=== PATIENT | male | born 1960 | race Caucasian/White ===

== ENCOUNTER 2020-01-02 19:32 | Observation (INO) | payer SELFPAY ==
[2020-01-02 20:09] LABS: ABS Eosinophils 0.1 10^3/ul (0-0.6); ABS Lymphocytes 1.4 10^3/ul (1.0-4.8); ABS Monocytes 0.5 10^3/ul (0-0.8); ABS Neutrophils 4.1 10^3/ul (1.5-7.7); Eosinophil % 1.6 %; Hematocrit 43 % (42-52); Hemoglobin 14.6 g/dL (14.0-18.0); Lymphocyte % 22.9 %; Mean Corpuscular HGB Conc 34 g/dL (31-36); Mean Corpuscular Hemoglobin 31 pg (27-31); Mean Corpuscular Volume 91 fL (80-94); Mean Platelet Volume 7.9 fL (7.4-10.4); Platelet Count 193 10^3/uL (150-450); Red Cell Distribution Width 14 % (10-15); White Blood Count 6.2 10^3/uL (3.5-10.8)
[2020-01-02 20:14] LABS: INR 1.03 (0.82-1.09)
[2020-01-02 20:25] LABS: Albumin 4.3 g/dL (3.2-5.2); Albumin/Globulin Ratio 1.9 (1-3); BUN/Creatinine Ratio 17.4 (8-20); Calcium 9.1 mg/dL (8.6-10.3); EGFR African American 110.9 (>60); EGFR Non-African American 91.7 (>60); Globulin 2.3 g/dL (2-4); Total Bilirubin 0.6 mg/dL (0.2-1.0); Total Protein 6.6 g/dL (6.4-8.9)
--- NOTE | 2020-01-02 20:25 | ED ---
HPI Chest Pain - HPI Summary HPI Summary: Patient is a 59 y/o M presenting to [facility] via EMS with complaints of chest pressure with pain that radiates down his left arm. He states that CP onset around 1630 01/02/20 while his friend was giving him a ride from work. He states that he went home, ate a chicken sandwich and lied down. However, Sx did not resolve. EMS was called. Baby ASA and nitro were administered. He reports relief in chest pain with nitro, but he still had arm pain. Left arm pain is since resolved. He also notes feeling SOB and nauseous but denies vomiting and diaphoresis. Patient notes having a similar episode around 12 years ago. He states that he had two cardiac catheterizations but no abnormal findings, no stents were placed. He claims his last cardiac stress test was around this time as well. Patient reports that he has not seen his GP in several years. No Hx of blood clots, no recent travel noted. He states that he experiences pain and swelling of his BLE. Patient denies tobacco and substance usage. Home medications and allergies are reviewed. Patient is on metaxalone for sciatic nerve pain and he takes ibuprofen. Home Medications Medication Instructions Recorded Confirmed Type NK [No Home Medications Reported] 01/02/20 01/02/20 History - History of Current Complaint Time Seen by Provider: 01/02/20 19:44 Hx Obtained From: Patient Onset/Duration: Started Hours Ago Pain Intensity: 4 Pain Scale Used: 0-10 Numeric Chest Pain Radiates: Yes Chest Pain Radiates To:: Arm Character: Pressure/Squeezing Alleviating Factor(s): NTG 123 Associated Signs and Symptoms: Positive: Chest Pain, Shortness of Breath, Swelling - BLE, Nausea, Calf Pain/Swelling - BLE, Edema - BLE. Negative: Diaphoresis, Vomiting - Allergy/Home Medications Allergies/Adverse Reactions: Allergies Allergy/AdvReac Type Severity Reaction Status Date / Time No Known Allergies Allergy Verified 01/02/20 20:32 Home Medications: Home Medications NK [No Home Medications Reported] 01/02/20 [History Confirmed 01/02/20] PMH/Surg Hx/FS Hx/Imm Hx Cardiovascular History: Denies: Hx Embolism Sensory History: Denies: Hx Legally Blind, Hx Deafness Opthamlomology History: Denies: Hx Legally Blind EENT History: Denies: Hx Deafness Neurological History: Reports: Other Neuro Impairments/Disorders - sciatica - Immunization History Immunizations Up to Date: Yes Infectious Disease History: No Infectious Disease History: Denies: Traveled Outside the [place] in Last 30 Days - Family History Known Family History: Positive: Cardiac Disease - pericarditis - Social History Alcohol Use: Occasionally Substance Use Type: Reports: None Smoking Status (MU): Never Smoked Tobacco Review of Systems Negative: Skin Diaphoresis Positive: Chest Pain Positive: Shortness Of Breath Positive: Nausea. Negative: Vomiting Positive: Myalgia - BLE, Edema - BLE All Other Systems Reviewed And Are Negative: Yes Physical Exam - Summary Physical Exam Summary: Constitutional: Well-developed, Well-nourished, Alert. (-) Distressed Skin: Warm, Dry HENT: Normocephalic; Atraumatic Eyes: Conjunctiva normal Neck: Musculoskeletal ROM normal neck. (-) JVD, (-) Stridor, (-) Tracheal deviation Cardio: Rhythm regular, rate normal, Heart sounds normal; Intact distal pulses; Radial pulses are 2+ and symmetric. (-) Murmur Pulmonary/Chest wall: Effort normal. (-) Respiratory distress, (-) Wheezes, (-) Rales Abd: Soft, (-) tenderness, (-) Distension, (-) Guarding, (-) Rebound Musculoskeletal: (-) Edema; Good pulses bilaterally in radius, No calf tenderness, No venous cords, No pain with dorsiflexion of foot. Lymph: (-) Cervical adenopathy Neuro: Alert, Oriented x3 Psych: Mood and affect Normal Triage Information Reviewed: Yes Vital Signs On Initial Exam: Initial Vitals Temp Pulse Resp BP Pulse Ox 99.5 F 86 18 127/73 98 01/02/20 19:39 01/02/20 19:39 01/02/20 19:39 01/02/20 19:39 01/02/20 19:39 Vital Signs Reviewed: Yes Procedures - Sedation Patient Received Moderate/Deep Sedation with Procedure: No Diagnostics - Vital Signs Vital Signs Temp Pulse Resp BP Pulse Ox 01/02/20 19:39 99.5 F 86 18 127/73 98 - Laboratory Lab Results: Lab Results 01/02/20 01/02/20 Range/Units 19:59 19:59 WBC 6.2 (3.5-10.8) 10^3/uL RBC 4.70 (4.18-5.48) 10^6 /uL Hgb 14.6 (14.0-18.0) g/dL Hct 43 (42-52) % MCV 91 (80-94) fL MCH 31 (27-31) pg MCHC 34 (31-36) g/dL RDW 14 (10-15) % Plt Count 193 (150-450) 10^3/uL MPV 7.9 (7.4-10.4) fL Neut % (Auto) 66.9 % Lymph % (Auto) 22.9 % [place] % (Auto) 8.0 % Eos % (Auto) 1.6 % Baso % (Auto) 0.6 % Absolute Neuts (auto) 4.1 (1.5-7.7) 10^3/ul Absolute Lymphs (auto) 1.4 (1.0-4.8) 10^3/ul Absolute Monos (auto) 0.5 (0-0.8) 10^3/ul Absolute Eos (auto) 0.1 (0-0.6) 10^3/ul Absolute Basos (auto) 0.0 (0-0.2) 10^3/ul Absolute Nucleated RBC 0.0 10^3/ul Nucleated RBC % 0.0 INR (Anticoag Therapy) 1.03 (0.82-1.09) Result Diagrams: 01/02/20 19:59 01/02/20 19:59 Lab Statement: Any lab studies that have been ordered have been reviewed, and results considered in the medical decision making process. - Radiology CXR Radiology Interpretation Completed By: ED Physician Summary of Radiographic Findings: No acute process, pending official report. - EKG 1939 Cardiac Rate: NL - rate of 87 BPM EKG Rhythm: Sinus Rhythm Summary of EKG Findings: EKG showed sinus rhythm with rate of 87 BPM, RBBB, no STEMI. ED physician has reviewed and interpreted this EKG. Chest Pain Course/Dx - Course Course Of Treatment: Patient is here with chest pain. Patient received nitroglycerin and aspirin with EMS with complete resolution of his symptoms. Patient's story is highly suspicious for ACS. Patient had an EKG showed right bundle branch block with no evidence of ischemia per sgarbossa criteria. Patient has no PE risk factors and has a well score of 0. Patient had a troponin which is negative and patient had negative chest x-ray. Patient's heart score of 4, patient is admitted to the hospital for a stress test - Diagnoses Provider Diagnoses: Chest pain - Provider Notifications Discussed Care Of Patient With: Bud Powell Time Discussed With Above Provider: 21:01 Instructed by Provider To: Other - Patient's case was discussed with Dr. Powell, Dr. Powell accepts for admission. Discharge ED - Sign-Out/Discharge Documenting (check all that apply): Patient Departure - admit - Discharge Plan Condition: Stable Disposition: ADMITTED TO [facility] Referrals: Faisal Gill MD [Primary Care Provider] - - Billing Disposition and Condition Condition: STABLE Disposition: Admitted to [facility] - Attestation Statements Document Initiated by Arelis: Yes Documenting Scribe: GENO GUO Provider For Whom Arelis is Documenting (Include Credential): LINA BUTT MD Scribe Attestation: GENO Singh, scribed for LINA BUTT MD on 01/02/20 at 2124. Scribe Documentation Reviewed: Yes Provider Attestation: The documentation as recorded by the GENO gonzalez accurately reflects the service I personally performed and the decisions made by me, LINA BUTT MD Status of Scribe Document: Viewed
[2020-01-02 20:26] LABS: Troponin I 0.01 ng/mL (<0.03)
[2020-01-02] MEDS ORDERED: Atorvastatin* 80 MG TAB PO ONE (21:14)
[2020-01-02 21:34] LABS: HDL Cholesterol 42.4 mg/dL
[2020-01-02] MEDS ORDERED: Dextrose 50% Syringe 50 ML* 25 GM/50 ML SYRINGE IV PUSH PRN ×2 (21:36→21:40)
[2020-01-02] MEDS ORDERED: Insulin LISPRO* 1 UNITS UNIT SUBCUT ONE (21:40)
[2020-01-02] MEDS ORDERED: Nitroglycerin TAB 0.4 MG* 0.4 MG TAB SL ONE (21:42)
[2020-01-02 22:01] LABS: C Reactive Protein 1.07 mg/L (<8.01)
[2020-01-02] MEDS: Metoprolol Tartrate TAB* 25 MG PO SCH (22:10)
[2020-01-02] MEDS: Enoxaparin(*) 40 MG/0.4 ML SYR SUBCUT SCH (23:06)
--- NOTE | 2020-01-02 23:57 | HP ---
HISTORY AND PHYSICAL: DATE OF ADMISSION: 01/02/20 ADMITTING PROVIDER: Bud Powell MD PRIMARY CARE PROVIDER: Dr. Faisal Gill but has not seen in at least 5 years. CHIEF COMPLAINT: Chest pain radiating to his left arm; it is accompanied by shortness of breath and palpitations. HISTORY OF PRESENT ILLNESS: Ralph Chirinos is a 59-year-old morbidly obese gentleman who has been lost to medical care for at least the last 5 years and had previously been told he had borderline hypertension and borderline diabetes. He also likely has obstructive sleep apnea and left-sided sciatica. He was in his usual state of health, around 4 p.m. he was walking to the car at work when he developed some left-sided chest tightness and then pain radiating down the left arm. He got home, it was still progressive and in fact a little bit worse. He called EMS and they gave him 324 mg aspirin at 1858 and then 1 nitroglycerin at 1912 and the combination of these resolved his symptoms. He has had previous sensation similar to this about 2003 and 2004. He had left heart catheterization on 02/14/[address] Lara, which showed no obstructive coronary artery disease and there was concern for possible GERD etiology. He denies today any association with food. He did eat dinner after this onset and denies any history of acid reflux. He also reportedly had another heart catheterization about 18 months prior to the 2005 one. He snores and does not tolerate a complete sleep study. He has had frequent nocturia and increased urination during the day as well for a number of years. He has had edema in his legs for also a number of years and sleeps with slight incline in his couch bed. 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 For the last few days, he has had increased shortness of breath doing his work activities. He denies any fevers, chills, cough, abdominal pain, diarrhea, constipation, nausea, diaphoresis. Initial workup in the [facility] Emergency Room included EKG with right bundle-branch block. He had been in normal sinus rhythm with a Q wave in III back on 02/15/05. Initial troponin was negative at 0.00. He was referred to hospitalist service given increased HEART score, given his cardiac comorbidities of obesity, diabetes, likely hypertension, former smoker. He denies any significant family history of coronary artery disease. Initial workup also included glucose of 294. PAST MEDICAL HISTORY: 1. Likely hypertension. 2. Likely diabetes. 3. Morbid obesity with BMI of 38.5. 4. Left-sided hip pain after sports injury resulting in sciatica. 5. Likely obstructive sleep apnea. MEDICATIONS: 1. Metaxalone as needed. 2. Ibuprofen 200 mg tabs 2 tabs at times as needed for sciatica pain. He takes this about once a month. ALLERGIES: No known drug allergies. SOCIAL HISTORY: The patient works at [employer] in the [employer]. He is a former smoker of cigars, he has quit number of years ago. He also was used to be a heavy drinker for approximately 9 years of about 12 pack per day. For the last 10 years, he cut back to about only drinking vodka and cranberry juice when he goes to the [employer] about 2 times a month. FAMILY MEDICAL HISTORY: His mother at age 62. She had diabetes. Father is alive at age 90, he has diabetes and needs a valvular replacement soon. He has 3 brothers and 4 sisters, all reportedly healthy and no reported heart disease. He has a 30-year-old daughter, Karon, who he desires to be his medical surrogate. He desires to be a full code. REVIEW OF SYSTEMS: A complete 14-point review of systems is negative except as per HPI. PHYSICAL EXAMINATION GENERAL APPEARANCE: No acute distress. VITAL SIGNS: Temperature 99.5, pulse rate 86, respiratory rate 18, satting 98% on room air, blood pressure 127/73. HEENT: Normocephalic, atraumatic. Pupils equal, round, and reactive to light. Extraocular motions are intact. No scleral icterus. LUNGS: He has a slight expiratory wheeze in his right mid lung, otherwise no rhonchi or rales. CARDIOVASCULAR: Regular rate and rhythm. No murmurs, rubs, or gallops. ABDOMEN: Soft, distended, nontender. EXTREMITIES: Warm and well perfused. Trace pitting edema bilaterally. NEURO: Cranial nerves II through XII grossly intact. Alert and oriented x3. SKIN: No lesions, no rashes. DIAGNOSTIC STUDIES/LAB DATA: White count 6.2, hemoglobin 14.6, hematocrit 43, platelets 193. INR 1.03. Sodium 137, potassium 4.0, chloride 102, carbon dioxide 30, BUN 15, creatinine 0.86, glucose 294, calcium 9.1. Total bili 0.6, AST 17, ALT 26, alk phos 85, troponin 0.01, albumin 4.3. Triglycerides 191, total cholesterol 155, LDL 74, HDL 42. CRP, BNP, and A1c are added, but pending. Imaging: Chest x-ray, PA and lateral views, formal read pending, no acute process per my read. EKG, as above with right bundle-branch block, no ST elevations or depressions except for lead III, which has a 2.[address] elevation, but not in continuous leads, MA is 162, QRS is 177, normal axis, QTc is 486. ASSESSMENT AND PLAN: 1. Ralph Chirinos is a 59-year-old gentleman who had lost access to medical followup for at least 5 years, presenting likely with history of morbid obesity , untreated diabetes mellitus, and hypertension who has had exertional shortness of breath over the last few days, which is new and new onset chest pressure radiating to his left arm that was relieved with aspirin and nitroglycerin with EMS. Calculated HEART score is approximately 5 to 6 given his moderately to highly suspicious history, his EKG changes though I do not have any recent priors, his age, and his 3 risk factors. He is being admitted for troponin trending. Repeat EKG. I am going to start a beta uche, Lipitor. Continue aspirin. Nitro sublingual q.5 minutes p.r.n. for return of chest pain. I will get an echocardiogram and likely stress test in the morning , but depending also on clinical course. He will be admitted to telemetry as observation patient. 2. Likely diabetes mellitus with former diagnosis of borderline diabetes approximately 15 years ago. His glucose is 294. He has symptoms of frequent nocturia and daytime urinary frequency. I am awaiting his A1c and putting him on sliding scale q.a.c., q.h.s., and give him 6 of lispro right now. He will be n.p.o. at midnight, he did eat his dinner. He admits to having somewhat unhealthy diet. 3. FEN: N.p.o. at night. Cardiac, heart healthy diet until then. 4. He is a full code. Medical surrogate is his daughter, Karon. [id number]/[facility] #: [id number] BECKID
[2020-01-03 01:16] LABS: Urine Appearance Clear; Urine Bilirubin Negative (Negative); Urine Blood Negative (Negative); Urine Color Yellow; Urine Glucose 3+(>=500 mg/dL) (Negative); Urine Ketones Negative (Negative); Urine Nitrite Negative (Negative); Urine Protein Negative (Negative); Urine Specific Gravity 1.024 (1.010-1.030); Urine Urobilinogen Negative (Negative)
[2020-01-03 04:48] LABS: ABS Eosinophils 0.1 10^3/ul (0-0.6); ABS Lymphocytes 2.2 10^3/ul (1.0-4.8); ABS Monocytes 0.5 10^3/ul (0-0.8); ABS Neutrophils 3.3 10^3/ul (1.5-7.7); Eosinophil % 1.9 %; Hematocrit 42 % (42-52); Hemoglobin 14.2 g/dL (14.0-18.0); Lymphocyte % 36.1 %; Mean Corpuscular HGB Conc 34 g/dL (31-36); Mean Corpuscular Hemoglobin 31 pg (27-31); Mean Corpuscular Volume 92 fL (80-94); Mean Platelet Volume 7.8 fL (7.4-10.4); Platelet Count 184 10^3/uL (150-450); Red Blood Count 4.57 10^6 /uL (4.18-5.48); Red Cell Distribution Width 14 % (10-15); White Blood Count 6.2 10^3/uL (3.5-10.8)
[2020-01-03 05:03] LABS: BUN/Creatinine Ratio 21.4 (8-20); Calcium 8.6 mg/dL (8.6-10.3); EGFR African American 140.7 (>60); EGFR Non-African American 116.2 (>60); Magnesium 1.8 mg/dL (1.9-2.7); Potassium 3.7 mmol/L (3.5-5.0)
[2020-01-03] MEDS: Metoprolol Tartrate TAB* 25 MG PO SCH ×3 (05:35→20:51)
[2020-01-03] MEDS ORDERED: Magnesium Oxide TAB* 400 MG PO ONE (07:32)
[2020-01-03] MEDS: Insulin LISPRO* 1 UNITS UNIT SUBCUT SCH ×4 (08:10→20:51)
[2020-01-03] MEDS ORDERED: Perflutren Lipid Microsphere* 3 ML VIAL ONE (08:17)
[2020-01-03] MEDS: Aspirin 81 mg CHEW TAB* 81 MG TAB.CHEW PO SCH (08:52)
--- NOTE | 2020-01-03 12:03 | ECHO ---
*[facility]* [place] [address] Fax #: [phone] Transthoracic Echocardiogram Patient: Ralph Chirinos : 1960 Study Date: 01/03/2020 Age: 59 Gender: M HR: 55 bpm Height: 74 in /188 cm BSA: 2.58 m^2 Weight: 299.4 lb /136.1 kg BMI: 38.5 kg/m^2 *Art Coordinator: * Jodi Caballero [facility] RN *Referring Physician: * Bud Powell *Reading Physician: * Salvador Goddard MD Indications: Chest Pain, unspecified. Abnormal EKG. SOB. Edema. History: Probable PAYAL. Risk factors: Former tobacco use. Hypertension. Diabetes mellitus. Morbidly obese. Conclusions Summary: - Left ventricle: The cavity size is normal. Wall thickness is mildly increased. Systolic function is normal. The estimated ejection fraction is 55-60%. There are no obvious regional wall motion abnormalities seen, - Right ventricle: The cavity size is mildly dilated. Systolic function is low normal. - Left atrium: The atrium is mildly dilated. - Pulmonary arteries: Systolic pressure is mildly increased, - No significant valvular abnormalities noted. Recommendations: None prior for comparison at time of interpretation. Study data: Transthoracic echocardiogram. Procedure: Transthoracic echocardiography was performed. Image quality was fair. The study was technically limited due to body habitus and smoking history. Intravenous Definity 4 ml was administered to enhance imaging. Complete 2D, spectral Doppler, and color flow Doppler. Location: Bedside. Patient status: Observation. Patient room number: 441-02. Rhythm: Bradycardia. Findings Left ventricle: The cavity size is normal. Wall thickness is mildly increased. Systolic function is normal. The estimated ejection fraction is 55-60%. There are no obvious regional wall motion abnormalities seen, Doppler parameters are consistent with abnormal left ventricular relaxation (grade 1 diastolic dysfunction). Right ventricle: The cavity size is mildly dilated. Systolic function is low normal. Left atrium: The atrium is mildly dilated. Right atrium: The atrium is mildly dilated. Mitral valve: The leaflets are mildly thickened. There is no evidence of stenosis. There is no significant regurgitation. Aortic valve: The leaflets are mildly thickened. There is no evidence of stenosis. There is no significant regurgitation. Tricuspid valve: Not well visualized. There is trace regurgitation. Pulmonic valve: Not well visualized. There is no significant regurgitation. Aorta: Aortic root: The aortic root is not dilated. Ascending aorta: The ascending aorta is appears normal. Aortic arch: The aortic arch is appears normal. Pericardium: There is no significant pericardial effusion. Pulmonary arteries: Not well visualized. Systolic pressure is mildly increased, Systemic veins: Inferior vena cava: The vessel is mildly dilated. There is (< 50%) respiratory change in the IVC dimension. Measurements Left ventricle Value Ref Aortic valve continued Value Ref URSULA, LAX 4.3 cm 4.2 - 5.8 Mean grad, S 5.0 mm Hg ---- ESD, LAX 3.5 cm 2.5 - 4.0 Peak grad, S 9.0 mm Hg ---- FS, LAX (L) 20 % 25 - 43 Mid-wall FS 9 % Mitral valve Value Ref PW, ED 1.0 cm 0.6 - 1.0 Peak E 0.6 m/sec ---- E', lat wanda, TDI (L) 8.5 cm/sec >=10.0 Peak A 0.71 m/sec - --- E/e', lat wanda, 7 Decel time 320 ms ---- TDI Peak E/A ratio 0.8 ---- E', med wanda, TDI 7.0 cm/sec >=7.0 E/e', med wanda, 9 Pulmonic valve Value Ref TDI Peak v, S 0.7 m/sec ---- E', avg, TDI 7.8 cm/sec Peak grad, S 2.0 mm Hg ---- E/e', avg, TDI 8 <=14 Tricuspid valve Value Ref Ventricular septum Value Ref Peak RV-RA grad, S 31 mm Hg ---- IVS, ED (H) 1.2 cm 0.6 - 1.0 Max TR eduard 2.8 m/sec ---- Right ventricle Value Ref Aortic root Value Ref URSULA minor ax, A4C (H) 4.7 cm 1.9 - 3.5 Root diam 3.5 cm <4.6 mid Pressure, S 46 mm Hg Ascending aorta Value Ref AAo AP diam, S 3.3 cm ---- Left atrium Value Ref AP dim, ES 4.00 cm 3.00 - Aortic arch Value Ref 4.00 Arch diam 2.6 cm ---- ML dim, A4C 5.1 cm SI dim, A4C 6.8 cm Decending aorta Value Ref Vol/bsa, ES, 1-p (H) 38 ml/m^2 12 - 37 Johanny peak eduard 0.73 m/sec ---- A4C Vol/bsa, ES, A/L (H) 37 ml/m^2 16 - 34 Pulmonary artery Value Ref Pressure, S 46.0 mm Hg ---- Right atrium Value Ref ML dim, ES, A4C (H) 5.1 cm 2.6 - 4.4 Inferior vena cava Value Ref SI dim, ES, A4C (H) 6.0 cm 3.4 - 5.3 Diam 2.2 cm ---- Aortic valve Value Ref Wanda diam, ED 2.3 cm Wanda diam/bsa, ED 0.9 cm/m^2 Peak v, S 1.5 m/sec VTI, S 36.1 cm Legend: (L) and (H) douglas values outside specified reference range. Prepared and electronically signed by Salvador Goddard MD 01/03/2020 12:02
--- NOTE | 2020-01-03 15:33 | PN ---
Subjective Date of Service: 01/03/20 Interval History: Mr. Chirinos is feeling much better today. Chest pain resolved yesterday in the ambulance and has not recurred since. He does have some left shoulder pain, but this is chronic and at baseline. Denies SOB, nausea, diaphoresis. No concerns from nursing. Family History: Unchanged from Admission Social History: Unchanged from Admission Past Medical History: Unchanged from Admission Objective Active Medications: Aspirin (Aspirin 81 Mg Chew Tab*) 81 mg PO DAILY SHRUTHI Atorvastatin Calcium (Lipitor*) 80 mg PO 1700 SHRUTHI Dextrose (D50w Syringe 50 Ml*) 12.5 gm IV PUSH .FOR FS < 60 - SS PRN FS < 60 Enoxaparin Sodium (Lovenox(*)) 40 mg SUBCUT Q24H SHRUTHI Insulin Human Lispro (Humalog*) 0 units SUBCUT ACHS SHRUTHI; Protocol Metoprolol Tartrate (Lopressor Tab*) 25 mg PO Q8H SHRUTHI Oxygen Devices in Use Now: None Appearance: Middle-aged male sitting in bed in NAD Ears/Nose/Mouth/Throat: Mucous Membranes Moist Neck: NL Appearance and Movements; NL JVP, Trachea Midline Respiratory: Symmetrical Chest Expansion and Respiratory Effort, Clear to Auscultation Cardiovascular: NL Sounds; No Murmurs; No JVD, RRR Extremities: - - Mild nonpitting BLE Neurological: Alert and Oriented x 3 Lines/Tubes/Other Access: Clean, Dry and Intact Peripheral IV Nutrition: Taking PO's Result Diagrams: 01/03/20 04:21 01/03/20 04:21 Assess/Plan/Problems-Billing Assessment: Mr. Chirinos is a 59 yo M with PMH of suspected HTN, DM2, and PAYAL, lost to follow up ; who presented to the ED with c/o chest pain and was admitted for SABINE. - Patient Problems (1) Chest pain Code(s): R07.9 - CHEST PAIN, UNSPECIFIED Comment: - Resolved - One episode on the day of admission with associated left arm pain - Trop negative x3 - EKG shows sinus nabeel with RBBB; no prior for comparison - Echo shows normal EF, no wall motion abnormalities - 2 day stress test d/t body habitus (2) Diabetes mellitus Code(s): E11.9 - TYPE 2 DIABETES MELLITUS WITHOUT COMPLICATIONS Comment: - A1c 8.2% - Will start metformin at d/c - Continue Lispro SS (3) Morbid obesity Code(s): E66.01 - MORBID (SEVERE) OBESITY DUE TO EXCESS CALORIES Comment: - BMI 39 (4) DVT prophylaxis Code(s): Z29.9 - ENCOUNTER FOR PROPHYLACTIC MEASURES, UNSPECIFIED Comment: - Lovenox (5) Full code status Code(s): Z78.9 - OTHER SPECIFIED HEALTH STATUS Comment: Status and Disposition: Observation. Anticipate d/c home when medically stable.
[2020-01-03] MEDS ORDERED: Atorvastatin* 80 MG TAB PO SCH (17:00)
[2020-01-03] MEDS ORDERED: Acetaminophen TAB* 325 MG PO PRN (21:37)
[2020-01-03] MEDS: Enoxaparin(*) 40 MG/0.4 ML SYR SUBCUT SCH (22:20)
[2020-01-04] MEDS: Metoprolol Tartrate TAB* 25 MG PO SCH (05:26)
[2020-01-04 06:03] LABS: ABS Eosinophils 0.1 10^3/ul (0-0.6); ABS Lymphocytes 2.1 10^3/ul (1.0-4.8); ABS Monocytes 0.5 10^3/ul (0-0.8); ABS Neutrophils 3.9 10^3/ul (1.5-7.7); Eosinophil % 1.8 %; Hematocrit 43 % (42-52); Hemoglobin 14.9 g/dL (14.0-18.0); Lymphocyte % 31.5 %; Mean Corpuscular HGB Conc 35 g/dL (31-36); Mean Corpuscular Hemoglobin 32 pg (27-31); Mean Corpuscular Volume 91 fL (80-94); Mean Platelet Volume 7.8 fL (7.4-10.4); Nucleated Red Blood Cells % 0.1; Platelet Count 178 10^3/uL (150-450); Red Cell Distribution Width 14 % (10-15); White Blood Count 6.5 10^3/uL (3.5-10.8)
[2020-01-04 06:20] LABS: BUN/Creatinine Ratio 16.9 (8-20); Calcium 8.9 mg/dL (8.6-10.3); EGFR African American 115.5 (>60); EGFR Non-African American 95.5 (>60); Magnesium 1.9 mg/dL (1.9-2.7); Potassium 4.4 mmol/L (3.5-5.0)
[2020-01-04 07:27] VITALS: BP 137/77
[2020-01-04] MEDS: Insulin LISPRO* 1 UNITS UNIT SUBCUT SCH (08:06)
[2020-01-04] MEDS: Aspirin 81 mg CHEW TAB* 81 MG TAB.CHEW PO SCH (10:11)
--- NOTE | 2020-01-04 14:16 | DS ---
CC: Dr. Faisal Gill * DISCHARGE SUMMARY: DATE OF ADMISSION: 01/02/20 DATE OF DISCHARGE: 01/04/20 PRIMARY CARE PROVIDER: Dr. Fiasal Gill. ATTENDING PHYSICIAN: Dr. Alannah Redmond.* (DICTATED BY INGRID NIXON NP) PRIMARY DIAGNOSES: 1. Chest pain, no evidence of acute coronary syndrome. 2. Diabetes mellitus type 2. SECONDARY DIAGNOSIS: Morbid obesity. STUDIES WHILE IN THE HOSPITAL: 1. Chest x-ray on 01/02/20 reads as findings consistent with COPD. No evidence for acute disease. 2. EKG on 01/03/20 shows sinus bradycardia with a rate of 54, right bundle branch block, RI 170, QTc 458. 3. Transthoracic echocardiogram on 01/03/20 reads as the left ventricular cavity size is normal. Wall thickness is mildly increased. Systolic function is normal. The estimated ejection fraction is 55% to 60%. There are no obvious regional wall motion abnormalities seen. The right ventricular cavity size is mildly dilated. Systolic function is low normal. The left atrium is mildly dilated. Systolic pressure in the pulmonary arteries is mildly increased. No significant valvular abnormalities noted. No prior study for comparison at the time of interpretation. 4. Nuclear cardiac stress test on 01/04/20 reads as decreased ejection fraction. No definite reversible perfusion defect. Assessment is intermediate risk. HISTORY OF PRESENT ILLNESS AND HOSPITAL COURSE: Mr. Chirinos is a 59-year-old male with past medical history of borderline hypertension, diabetes, and obesity, who presented to the emergency room on 01/02/20 with complaints of chest pain. Please see the history and physical by Dr. Powell for a complete summary of the events leading up to this hospitalization. In short, the patient was in his normal state of health. He was walking to his car after work when he developed some left-sided chest tightness with pain radiating down the left arm. He called EMS and was given aspirin and nitro, which relieved his pain. In the emergency room, he had no further pain. He had imaging as noted above. He was noted to have a right bundle branch block and it is unclear if this was his baseline as there is no prior EKG on file. He was noted to have a HEART score of 5 and so he was admitted by the hospitalist service for inpatient stress test. The patient was monitored on telemetry with no significant arrhythmias noted. He had no further episodes of chest pain. He did complain of some left shoulder pain, though notes that this is his baseline secondary to osteoarthritis. Due to his weight, he did require a 2-day stress test which was ultimately completed today. Stress test was noted to be intermediate risk simply based on his slightly decreased ejection fraction, though there were no perfusion defects noted. He did have a lipid panel, which revealed triglycerides of 191, total cholesterol of 155, LDL of 74, and HDL of 42. He additionally had a hemoglobin A1c, which was noted to be 8.2%. There were no other significant lab abnormalities. I did discuss with the patient all of his imaging and lab results here in the hospital and we did talk about this new diagnosis of diabetes and further diabetes management. Regarding his chest pain , the source of the pain is unclear, though at this time there is no evidence to support any acute coronary syndrome, so this may have been musculoskeletal in nature. Today, the patient reports feeling well and is looking forward to going home. On exam, he is alert and oriented x4 with no focal neurological deficits. Heart has a regular rate and rhythm without murmurs, rubs, or gallops. Lungs are clear to auscultation without rhonchi, wheezes, or rales. There is mild nonpitting edema to bilateral lower extremities. Physical exam is otherwise benign. Mr. Chirinos is stable for discharge. Most recent vitals are as follows: Temp 97.6 , heart rate 51, respiratory rate 16, oxygen saturation 98% on room air, blood pressure 137/77. DISCHARGE MEDICATIONS: New: 1. Aspirin 81 mg p.o. daily. 2. Metformin 500 mg p.o. daily. DISCHARGE PLAN: Mr. Chirinos will be discharged home. Activity will be as tolerated. Diet will be ADA diabetic. Medications are noted above. I have advised the patient that he can continue taking aspirin if he so chooses for primary prevention as he does have significant risk factors for coronary artery disease, though no evidence of coronary artery disease at this time. I have additionally placed him on a low dose of metformin, which he was amenable to. Again, we also did talk about dietary changes and weight loss. He was not noted to be significantly hypertensive while here in the hospital, though was borderline hypertensive with systolics in the 130s, though I am hesitant to put him on any medication at this time as his blood pressure may be falsely elevated due to stress. I did speak with the patient's daughter, Karon who is a nurse practitioner, regarding all results of imaging and laboratory work during this hospital stay and she is also agreeable with this plan moving forward. The patient should follow up with his primary care provider and we have made an appointment for him with Dr. Gill on 01/07/20 at 1 p.m. I did provide the patient with a work note to remain out of work until Tuesday, at which time he can return without restrictions. He should return to the emergency room or nearest hospital for any worsening of symptoms, shortness of breath, lightheadedness, dizziness, chest discomfort, high fevers, chills, night sweats, loss of consciousness, or any other worrisome signs or symptoms. DISCHARGE CONDITION: Stable. DISCHARGE DISPOSITION: Home. This is a summarized report of a complex medical history and hospital stay. For further details, please see the entire medical record. TIME SPENT: Approximately 40 minutes was spent on this discharge. INGRID NIXON NP [id number]/CPS #: [id number] ANGI
== END 2020-01-04 11:07 | disposition home or self-care (01) ==
LOC: ED 19:32 → MEDTELE 21:34
PROVIDERS: ADMIT Internal Medicine; ATTEND Internal Medicine
DX: R07.9 Chest pain, unspecified (principal); E11.9 Type 2 diabetes mellitus without complications; Z79.4 Long term (current) use of insulin; E66.01 Morbid (severe) obesity due to excess calories; R03.0 Elevated blood-pressure reading, without diagnosis of hypertension; M25.552 Pain in left hip; G47.33 Obstructive sleep apnea (adult) (pediatric); R06.02 Shortness of breath; Z68.38 Body mass index [BMI] 38.0-38.9, adult; Z87.891 Personal history of nicotine dependence; Z79.82 Long term (current) use of aspirin
CPT/HCPCS: 36415; 71046; 78452; 80048; 80053; 80061; 81003; 83036; 83735; 83880; 84484; 85025; 85610; 86140; 93005; 93017; 93306; 96372; 99284; A9270-GY; A9502; C8929; G0378; J1650

== ENCOUNTER 2020-10-27 10:36 | Observation (INO) ==
[2020-10-27 12:59] LABS: ABS Eosinophils 0.1 10^3/ul (0-0.6); ABS Monocytes 1.5 10^3/ul (0-0.8); ABS Neutrophils 9.3 10^3/ul (1.5-7.7); Eosinophil % 0.4 %; Hematocrit 44 % (42-52); Hemoglobin 15.3 g/dL (14.0-18.0); Lymphocyte % 15.4 %; Mean Corpuscular HGB Conc 35 g/dL (31-36); Mean Corpuscular Hemoglobin 31 pg (27-31); Mean Corpuscular Volume 89 fL (80-94); Mean Platelet Volume 7.8 fL (7.4-10.4); Platelet Count 226 10^3/uL (150-450); Red Blood Count 4.99 10^6 /uL (4.18-5.48); Red Cell Distribution Width 14 % (10-15); White Blood Count 12.9 10^3/uL (3.5-10.8)
[2020-10-27 13:08] LABS: Albumin 4.1 g/dL (3.2-5.2); Albumin/Globulin Ratio 1.5 (1-3); C Reactive Protein 124.35 mg/L (<8.01); Calcium 9.3 mg/dL (8.6-10.3); EGFR African American 129.4 (>60); Globulin 2.8 g/dL (2-4); Potassium 3.7 mmol/L (3.5-5.0); Total Bilirubin 1.2 mg/dL (0.2-1.0); Total Protein 6.9 g/dL (6.4-8.9)
[2020-10-27] MEDS ORDERED: Piperacillin/Tazobac ADVAN 3.375 GM in NS 0.9% 100 ml BAG 100 ML IV SCH (13:46)
[2020-10-27] MEDS ORDERED: Rocuronium 50 mg VIAL 10 mg/ml 5 ml VIAL (50 mg) ONE (14:38)
[2020-10-27] MEDS ORDERED: Dexamethasone IV 4 MG/ML VIAL 1 ml VIAL ONE (14:38)
[2020-10-27] MEDS ORDERED: fentaNYL 250 mcg/5 ml 50 MCG/ML 5 ml VIAL (250 MCG) ONE (14:38)
[2020-10-27] MEDS ORDERED: Midazolam 2 mg/2 ml VIAL 1 mg/ml 2 ml VIAL (2 mg) ONE (14:38)
[2020-10-27] MEDS ORDERED: Propofol 10 MG/ML 20 ML BTL ONE (14:38)
[2020-10-27] MEDS ORDERED: Ondansetron 4 mg VIAL 2 MG/ML 2 ml VIAL ONE (14:38)
[2020-10-27] MEDS ORDERED: Lidocaine 2% PF 5 ML VIAL ONE (14:38)
[2020-10-27] MEDS ORDERED: ceFAZolin 2 GM PREMIX 2 GM/50 ML BAG ONE (15:01)
[2020-10-27] MEDS ORDERED: Buffered Lidocaine 1% SYRIN 1 ml INTRADERM ONE (15:02)
[2020-10-27] MEDS ORDERED: Famotidine IV 10 MG/ML 2 ml VIAL (20 mg) IV ONE (15:02)
[2020-10-27] MEDS ORDERED: DiMENhydriNATE IV 50 mg/ml 1 ml VIAL IV PUSH ONE (15:02)
[2020-10-27] MEDS ORDERED: Naloxone 0.4 mg VIAL 0.4 mg/ml 1 ml VIAL IV PRN ×2 (15:04→18:53)
[2020-10-27] MEDS ORDERED: Prochlorperazine 5 mg/ml 2 ml VIAL (10 mg) IV PRN ×2 (15:04→18:53)
[2020-10-27] MEDS ORDERED: fentaNYL 100 mcg/2 ml 50 MCG/ML VIAL IV PRN ×2 (15:04→18:53)
[2020-10-27] MEDS ORDERED: HYDROcodone/ACETAMIN 5/325 mg TAB PO PRN ×2 (15:04→18:53)
[2020-10-27] MEDS ORDERED: Famotidine IV 10 MG/ML 2 ml VIAL (20 mg) ONE (15:05)
[2020-10-27] MEDS ORDERED: DiMENhydriNATE IV 50 mg/ml 1 ml VIAL ONE (15:05)
[2020-10-27] MEDS ORDERED: Phenylephrine IV 10 MG/ML 1 ml VIAL ONE (15:52)
[2020-10-27] MEDS ORDERED: Phenylephrine 40 mcg/mL 10mL (400mcg) SYRINGE ONE (15:52)
[2020-10-27] MEDS ORDERED: EPHEDrine (Pressors) 50 MG/ML VIAL ONE (15:57)
[2020-10-27] MEDS ORDERED: Succinylcholine 200 mg VIAL 20 mg/ml 10 ml VIAL (200 mg) ONE (16:00)
[2020-10-27] MEDS ORDERED: Lactated Ringers 1000 ml BAG 1,000 ML IV SCH (16:00)
[2020-10-27] MEDS ORDERED: Ondansetron 4 mg VIAL 2 MG/ML 2 ml VIAL IV PRN (17:53)
[2020-10-27] MEDS ORDERED: Calcium Carb (TUMS) 500 mg CHEW TAB PO PRN (18:00)
[2020-10-27] MEDS ORDERED: NS 0.9% 1000 ml BAG 1,000 ML IV SCH (18:00)
[2020-10-27] MEDS ORDERED: fentaNYL 100 mcg/2 ml 50 MCG/ML VIAL ONE (18:18)
[2020-10-27] MEDS ORDERED: HYDROmorphone 0.5 MG/0.5 ML SYRINGE IV SLOW PU PRN (18:58)
[2020-10-27] MEDS ORDERED: ZOSYN 3.375 GM x ONE DOSE over 30 miuntes IV (19:30)
[2020-10-28] MEDS ORDERED: Piperacillin/Tazobac ADVAN 3.375 GM in NS 0.9% 100 ml BAG 100 ML IV SCH (02:00)
[2020-10-28 03:10] VITALS: BP 125/60
[2020-10-28 06:42] LABS: ABS Lymphocytes 1.1 10^3/ul (1.0-4.8); ABS Monocytes 0.9 10^3/ul (0-0.8); ABS Neutrophils 10.3 10^3/ul (1.5-7.7); Hematocrit 38 % (42-52); Hemoglobin 12.8 g/dL (14.0-18.0); Lymphocyte % 8.8 %; Mean Corpuscular HGB Conc 34 g/dL (31-36); Mean Corpuscular Hemoglobin 31 pg (27-31); Mean Corpuscular Volume 89 fL (80-94); Mean Platelet Volume 7.8 fL (7.4-10.4); Platelet Count 187 10^3/uL (150-450); Red Cell Distribution Width 14 % (10-15); White Blood Count 12.2 10^3/uL (3.5-10.8)
[2020-10-28 06:55] LABS: Albumin 3.3 g/dL (3.2-5.2); Albumin/Globulin Ratio 1.3 (1-3); BUN/Creatinine Ratio 17.2 (8-20); Calcium 8.2 mg/dL (8.6-10.3); EGFR African American 109.1 (>60); EGFR Non-African American 90.1 (>60); Globulin 2.6 g/dL (2-4); Potassium 4.3 mmol/L (3.5-5.0); Total Bilirubin 0.9 mg/dL (0.2-1.0); Total Protein 5.9 g/dL (6.4-8.9)
== END 2020-10-28 10:49 | disposition home or self-care (01) ==
LOC: SSU 10:36 → ED 10:36
PROVIDERS: ADMIT Physician Assistant Medical; ATTEND Surgery